=== PATIENT | female | born 1950 | race Caucasian/White ===

== ENCOUNTER 2017-12-07 07:40 | Day surgery (SDC) | payer MEDICARE, OTHER ==
[2017-12-05 09:03] VITALS: BMI 28.3
[~2017-12-07 07:40] MED LIST: LACTATED RINGERS 1,000 ML IV SCH
[2017-12-07 07:56] VITALS: RESP 16; TEMP 97.2
[2017-12-07] MEDS ORDERED: LIDOCAINE 1% 20 ML VIAL (10MG/ML) FOR IV START INTRADERMA ONE (08:02)
[2017-12-07] MEDS ORDERED: LIDOCAINE 1% INJ 10MG/ML (20 ML MDV) ONE (08:20)
[2017-12-07] MEDS ORDERED: PROPOFOL 10 MG/ML 20 ML VIAL IV ONE (08:20)
--- NOTE | 2017-12-07 08:34 | P.GSHP ---
History of Present Illness H&P Date: 12/07/17 Chief Complaint: GI bleed This is a 67-year-old female who presents today for colonoscopy. Patient has had history of GI bleed. Past Medical History Past Medical History: GERD/Reflux, Hyperlipidemia, Hypertension, Thyroid Disorder Additional Past Medical History / Comment(s): STATES NEW DIAGNOSIS OF HTN- WAITING FOR LOTREL PRESCRIPTION TO BE APPROVED BY HER INSURANCE., HYPOTHYROID, ALLERGIES, MIGRAINES., OCCASIONAL RECTAL BLOOD. History of Any Multi-Drug Resistant Organisms: None Reported Past Surgical History: Appendectomy, Section, Cholecystectomy, Orthopedic Surgery, Tonsillectomy, Tubal Ligation Additional Past Surgical History / Comment(s): RT ELBOW SX FOR TENNIS ELBOW Past Anesthesia/Blood Transfusion Reactions: Previous Problems w/ Anesthesia, Motion Sickness Additional Past Anesthesia/Blood Transfusion Reaction / Comment(s): STATES DIFFICULTY WAKING UP. Past Psychological History: Depression Smoking Status: Current some day smoker Past Alcohol Use History: Rare Additional Past Alcohol Use History / Comment(s): SMOKES OCCASIONALLY, SMOKING FOR APPROX 50 YEARS, QUIT 10 YRS AND STARTED AGAIN. Past Drug Use History: None Reported - Past Family History Sister(s) Family Medical History: Cancer Medications and Allergies Home Medications Medication Instructions Recorded Confirmed Type Atorvastatin [Lipitor] 20 mg PO HS 12/05/17 12/07/17 History Ibuprofen 200 mg PO ONCE PRN 12/05/17 12/07/17 History Levothyroxine Sodium [Levoxyl] 50 mcg PO DAILY 12/05/17 12/07/17 History Otc Allergy Med 1 tab PO DAILY 12/05/17 12/07/17 History amLODIPine BESYLATE/BENAZEPRIL 1 cap PO DAILY 12/05/17 12/07/17 History [Lotrel 5-10 mg Capsule] Allergies Allergy/AdvReac Type Severity Reaction Status Date / Time codeine Allergy Unknown Verified 12/07/17 07:51 Sulfa (Sulfonamide Allergy Unknown Verified 12/07/17 07:51 Antibiotics) venom-honey bee Allergy Unknown Verified 12/07/17 07:51 [bee venom (honey bee)] Surgical - Exam Vital Signs Temp Pulse Resp BP Pulse Ox 97.2 F L 81 16 129/60 95 12/07/17 07:55 12/07/17 07:55 12/07/17 07:55 12/07/17 07:55 12/07/17 07:55 - General well developed, no distress - Eyes PERRL - ENT normal pinna - Neck no masses - Respiratory normal expansion - Cardiovascular Rhythm: regular - Abdomen Abdomen: soft, non tender Assessment and Plan Assessment: GI bleed. We'll perform colonoscopy.
--- NOTE | 2017-12-07 08:53 | P.OP ---
Date of Procedure: 12/07/17 Preoperative Diagnosis: GI bleed Postoperative Diagnosis: Diverticulosis Minimal internal hemorrhoids Procedure(s) Performed: Colonoscopy Anesthesia: MAC Surgeon: Alan Colmenares Pathology: none sent Condition: stable Disposition: PACU Description of Procedure: The patient's placed on the endoscopy table in the lateral position. She received IV sedation. Digital rectal exam was performed which revealed a few internal hemorrhoids. The flexible colonoscope was then placed in the patient' s anus and passed throughout the entire colon. The ileocecal valve was visualized. There is a large amount of liquid stool ileocecal valve area which limited the view of the mucosa. There was no obvious tumor seen. The scope was then withdrawn. The remainder the ascending colon transverse colon and descending colon appeared normal. In the sigmoid colon there were some scattered diverticula. Scope was then brought back the rectum and this appeared normal. The scope was then withdrawn from patient.
[2017-12-07 09:15] VITALS: BP 103/59; PULSE 70
== END 2017-12-07 09:33 | disposition home or self-care (01) ==
LOC: ORWHC2ENDO 07:40
PROVIDERS: ATTEND Surgery
DX: K57.30 Diverticulosis of large intestine without perforation or abscess without bleeding (principal); K64.8 Other hemorrhoids; K21.9 Gastro-esophageal reflux disease without esophagitis; E78.5 Hyperlipidemia, unspecified; I10 Essential (primary) hypertension; E03.9 Hypothyroidism, unspecified; Z79.899 Other long term (current) drug therapy; Z88.2 Allergy status to sulfonamides; Z91.030 Bee allergy status; F17.200 Nicotine dependence, unspecified, uncomplicated
CPT/HCPCS: 45378; J2001; J2704

== ENCOUNTER → 2018-01-03 | Outpatient (CLI) | payer MEDICARE, OTHER ==
[2018-01-03 12:05] LABS: T4, Free (Free Thyroxine) 1.17 ng/dL (0.78-2.19)
== END ==
LOC: LABWHC1 10:52
PROVIDERS: ATTEND Otolaryngology
DX: E06.9 Thyroiditis, unspecified (principal)
CPT/HCPCS: 36415; 84439; 84443; 86376

== ENCOUNTER → 2018-01-10 | Outpatient (CLI) | payer MEDICARE, OTHER ==
--- NOTE | 2018-01-10 09:02 | CT ---
EXAMINATION TYPE: CT sinus wo con DATE OF EXAM: 01/10/2018 COMPARISON: NONE HISTORY: Facial pain and pressure for [address] DLP: 564.4 mGycm CONTRAST: 0 mL of Isovue 300 The paranasal sinuses are examined in the axial plane at 2 mm thick sections. Reconstructed images i n the coronal plane were obtained. Bilateral ethmoidectomies and uncinectomies been performed. No significant mucosal thickening is evid ent. No suspicious air-fluid levels are present. The maxillary sinuses are clear. The ethmoid air cells are clear. The sphenoid sinuses are clear. The frontal sinuses are clear. The septum is evaluated. There is septal deviation to the left. The ostiomeatal units are patent. IMPRESSIONS: 1. Postsurgical changes within the paranasal sinuses. No suspicious acute or chronic changes evident .
== END | disposition home or self-care (01) ==
LOC: RADCTMAIN 08:20
PROVIDERS: ATTEND Otolaryngology
DX: J32.9 Chronic sinusitis, unspecified (principal); Z98.890 Other specified postprocedural states
CPT/HCPCS: 70486

== ENCOUNTER → 2018-02-19 | Outpatient (CLI) | payer MEDICARE, OTHER ==
[2018-02-19 09:02] LABS: Blood Urea Nitrogen 15 mg/dL (7-17)
--- NOTE | 2018-02-19 16:20 | MR ---
EXAMINATION TYPE: MR brain and iac wo/w con DATE OF EXAM: 02/19/2018 COMPARISON: 01/10/2018 CT sinuses HISTORY: DIZZINESS TECHNIQUE: Multiplanar, multisequence images of the brain and brainstem is performed without and with IV contras t, utilizing 7 mL intravenous Gadavist . FINDINGS: Diffusion weighted images demonstrate no evidence of a recent infarct or other diffusion ab normality. There is no extra-axial fluid collection. There is moderate burden nonspecific white chichi er change demonstrated as scattered foci of T2/FLAIR hyperintensity within the periventricular and john bcortical white matter. The largest is seen within the left frontal subcortical white matter on FLAIR fat sat axial image 21 measuring 7 mm. The ventricular system and cisternal spaces are normal in siz e and appearance. The brain volume is age appropriate. Midline structures demonstrate normal morphology. The craniocervical junction appears within normal limits. There is very mild asymmetric enhancement on the left along the course of the 7th and 8th cr anial nerves confined to their canalicular segments only. Post contrast images demonstrate no other a bnormal enhancement. The dural venous sinuses appear patent. No cerebellar pontine angle mass is iden tified. The visualized sinuses are clear other than scant mucosal thickening within the ethmoid sinus es. The globes are intact. IMPRESSION: 1. Mild linear asymmetric enhancement in the canalicular portions of the 7th and 8th cranial nerves t hat may relate to nonspecific neuritis, demyelination, infectious etiology or granulomatous etiology. No focal lesion to suggest schwannoma is seen. 2. Moderate burden nonspecific white matter change predominating within the subcortical white matter. Therefore given its distribution is most likely relates to sequela of microangiopathy rather than de myelinating disease. Vasculitis could also be considered. 2. No evidence of acute infarct, intracranial enhancing mass, or midline shift. 3. Very mild ethmoid mucosal thickening.
== END | disposition home or self-care (01) ==
LOC: RADMRIMAIN 08:16
PROVIDERS: ATTEND Otolaryngology
DX: R90.82 White matter disease, unspecified (principal); R42 Dizziness and giddiness
CPT/HCPCS: 82565; 84520; 70553; 36415; A9581

== ENCOUNTER → 2018-03-06 | Outpatient (CLI) | payer MEDICARE, OTHER ==
--- NOTE | 2018-03-06 20:17 | XR ---
EXAMINATION TYPE: XR elbow complete LT DATE OF EXAM: 03/06/2018 COMPARISON: NONE HISTORY: Elbow pain TECHNIQUE: 3 views FINDINGS: There is hairline intra-articular chip fracture of the lateral aspect of the radial head. T his measures 11 mm. IMPRESSION: Radial head chip fracture. No dislocation. No joint effusion seen.
== END | disposition home or self-care (01) ==
LOC: RADXRMAIN 18:06
PROVIDERS: ATTEND Family Medicine
DX: S52.122A Displaced fracture of head of left radius, initial encounter for closed fracture (principal)

== ENCOUNTER → 2018-03-30 | Outpatient (CLI) | payer MEDICARE, OTHER ==
--- NOTE | 2018-03-30 13:31 | US ---
EXAMINATION TYPE: US carotid duplex BILAT DATE OF EXAM: 03/30/2018 COMPARISON: NONE CLINICAL HISTORY: R42 DIZZINESS. EXAM MEASUREMENTS: RIGHT: Peak Systolic Velocity (PSV) cm/sec ----- Right CCA: 78.4 ----- Right ICA: 123 ----- Right ECA: 136 ICA/CCA ratio: 1.5 RIGHT: End Diastole cm/sec ----- Right CCA: 17.8 ----- Right ICA: 37.3 ----- Right ECA: 12.0 LEFT: Peak Systolic Velocity (PSV) cm/sec ----- Left CCA: 93.4 ----- Left ICA: 201 ----- Left ECA: 143 ICA/CCA ratio: 2.1 LEFT: End Diastole cm/sec ----- Left CCA: 21.5 ----- Left ICA: 46.6 ----- Left ECA: 15.7 VERTEBRALS (direction of flow): Right Vertebral: Antegrade Left Vertebral: Antegrade Rhythm: Normal Moderate amount of plaque visualized bilateral bulbs/proximal ICAs. Elevated velocities visualized in right ECA, left proximal and mid ICA, and left ECA. IMPRESSION: 1. 50-69% stenosis within the left internal carotid artery. CTA neck could more accurately assess the degree of stenosis. 2. Velocity within the right internal carotid artery approaching abnormal values favored to represent approximately 50% stenosis. 3. Incidentally noted elevated velocities within the external carotid arteries likely due to atheroma tous plaquing at the carotid bulbs.
== END | disposition home or self-care (01) ==
LOC: RADUSWWP 11:02
PROVIDERS: ATTEND Psychiatry & Neurology Neurology
DX: I65.22 Occlusion and stenosis of left carotid artery (principal); R93.8 Abnormal findings on diagnostic imaging of other specified body structures
CPT/HCPCS: 93880

== ENCOUNTER → 2018-04-05 | Outpatient (CLI) | payer MEDICARE, OTHER ==
--- NOTE | 2018-04-12 13:37 | HM ---
HOLTER MONITOR REPORT Patient was monitored for 24 hours. Baseline rhythm is a sinus mechanism with normal conduction. The average rate is 79 beats per minute, minimum of 53, maximum 133 beats per minute. Ventricular ectopic activity was not present. Supraventricular ectopic activity was present in the form of rare single PACs. No diary was available. CONCLUSION: 1. Sinus mechanism baseline rhythm. 2. No ventricular ectopic activity. 3. Rare supraventricular ectopic activity. 4. No diary was available. MMODL / IJN: [id number] /
== END | disposition home or self-care (01) ==
LOC: RADECHMAIN 12:03
PROVIDERS: ATTEND Psychiatry & Neurology Neurology
DX: R93.1 Abnormal findings on diagnostic imaging of heart and coronary circulation (principal)
CPT/HCPCS: 93225; 93226

== ENCOUNTER → 2018-04-12 | Outpatient (CLI) | payer MEDICARE, OTHER ==
[2018-04-12 10:35] LABS: Blood Urea Nitrogen 12 mg/dL (7-17)
--- NOTE | 2018-04-12 13:11 | CT ---
EXAMINATION TYPE: CT angio neck DATE OF EXAM: 04/12/2018 HISTORY: Occlusion and stenosis of bilateral carotid COMPARISON: Carotid Doppler duplex 03/30/2018 CT DLP: 271 mGycm. Automated Exposure Control for Dose Reduction was Utilized. TECHNIQUE: CTA scan of the neck is performed without and with IV Contrast, patient injected with 100 ml mL of Isovue 370, axial images are obtained, coronal and sagittal reformatted images are reviewed . Three-D reconstructed images are created on an independent workstation and reviewed. FINDINGS: Carotid/Vascular Structures: High-grade stenosis of the proximal internal carotid artery on the left is noted, findings thought to represent at least 70% diameter reduction and possibly greater. Right i nternal carotid artery does not show significant stenosis. External carotid arteries are patent bilat erally. There is plaque present at the common carotid arteries bilaterally, the common carotid, left and right subclavian, innominate arteries and transverse aorta are patent. There is atheromatous max ge at the origin of the super aortic branch vessels. Difficult to exclude origin stenosis of super ao rtic branch vessels as well as the origin of the right subclavian artery, local contrast at this leve l from the venous injection obscures detail. Other: Degenerative disc changes are present in the visualized spine. Multilevel foraminal encroachme nt present. Lung apices show emphysematous changes. IMPRESSION: Hemodynamic significant stenosis of the proximal internal carotid artery on the left.
== END | disposition home or self-care (01) ==
LOC: RADCTMAIN 09:43
PROVIDERS: ATTEND Psychiatry & Neurology Neurology
DX: I65.22 Occlusion and stenosis of left carotid artery (principal)
CPT/HCPCS: 82565; 84520; 70498; 36415; Q9967

== ENCOUNTER 2018-06-02 20:17 | Emergency (ER) | payer MEDICARE, OTHER ==
[2018-06-02 20:23] VITALS: BP 137/60; PULSE 93; RESP 18; TEMP 98.7
[2018-06-02] MEDS ORDERED: ORPHENADRINE 30 MG/ML 2 ML VIAL IM STA (20:58)
[2018-06-02] MEDS ORDERED: KETOROLAC 60 MG/2 ML VIAL IM STA (20:58)
--- NOTE | 2018-06-02 21:00 | ED ---
Back Pain HPI - General Source: patient, family, RN notes reviewed, old records reviewed Limitations: no limitations <Abigail Hernandez - Last Filed: 06/04/18 00:10> <Talia Mei - Last Filed: 06/04/18 03:05> - General Chief Complaint: Extremity Injury, Lower Stated Complaint: Leg/back pain Time Seen by Provider: 06/02/18 20:32 - History of Present Illness Initial Comments: Patient is a 68-year-old female presents emergency department due to bleeding of 4 days of left-sided back pain radiating towards the back of her leg and on the side of her leg into her knee. Patient states that she is not taking anything for pain relief. Patient reports that she has been moving as of recently and she's in lifting heavy boxes. Patient states that she's had no bowel or bladder incontinence. Denies any saddle anesthesias. Patient states that she has painless range of motion of her lower back and hip. (Abigail Hernandez) - Related Data Home Medications Medication Instructions Recorded Confirmed Atorvastatin [Lipitor] 20 mg PO HS 12/05/17 12/07/17 Ibuprofen 200 mg PO ONCE PRN 12/05/17 12/07/17 Levothyroxine Sodium [Levoxyl] 50 mcg PO DAILY 12/05/17 12/07/17 Otc Allergy Med 1 tab PO DAILY 12/05/17 12/07/17 amLODIPine BESYLATE/BENAZEPRIL 1 cap PO DAILY 12/05/17 12/07/17 [Lotrel 5-10 mg Capsule] Previous Rx's Medication Instructions Recorded Cyclobenzaprine [Flexeril] 10 mg PO TID #20 tab 06/02/18 HYDROcodone/APAP 5-325MG [[place] 1 tab PO Q6HR PRN 3 Days #12 tab 06/02/18 5-325] Ibuprofen 800 mg PO TID #20 tablet 06/02/18 Allergies Allergy/AdvReac Type Severity Reaction Status Date / Time codeine Allergy Unknown Verified 06/02/18 20:23 Sulfa (Sulfonamide Allergy Unknown Verified 06/02/18 20:23 Antibiotics) venom-honey bee Allergy Unknown Verified 06/02/18 20:23 [bee venom (honey bee)] Review of Systems ROS Other: All systems not noted in ROS Statement are negative. <Abigail Hernandez - Last Filed: 06/04/18 00:10> ROS Other: All systems not noted in ROS Statement are negative. <Talia Mei Colin - Last Filed: 06/04/18 03:05> ROS Statement: Those systems with pertinent positive or pertinent negative responses have been documented in the HPI. Past Medical History Past Medical History: GERD/Reflux, Hyperlipidemia, Hypertension, Thyroid Disorder Additional Past Medical History / Comment(s): STATES NEW DIAGNOSIS OF HTN- WAITING FOR LOTREL PRESCRIPTION TO BE APPROVED BY HER INSURANCE., HYPOTHYROID, ALLERGIES, MIGRAINES., OCCASIONAL RECTAL BLOOD. History of Any Multi-Drug Resistant Organisms: None Reported Past Surgical History: Appendectomy, Section, Cholecystectomy, Orthopedic Surgery, Tonsillectomy, Tubal Ligation Additional Past Surgical History / Comment(s): RT ELBOW SX FOR TENNIS ELBOW Past Anesthesia/Blood Transfusion Reactions: Previous Problems w/ Anesthesia, Motion Sickness Additional Past Anesthesia/Blood Transfusion Reaction / Comment(s): STATES DIFFICULTY WAKING UP. Past Psychological History: Depression Smoking Status: Current some day smoker Past Alcohol Use History: Rare Past Drug Use History: None Reported - Past Family History Sister(s) Family Medical History: Cancer <MaryAbigail - Last Filed: 06/04/18 00:10> General Exam Limitations: no limitations General appearance: alert, in no apparent distress Head exam: Present: atraumatic, normocephalic, normal inspection Eye exam: Present: normal appearance, PERRL, EOMI. Absent: scleral icterus, conjunctival injection, periorbital swelling ENT exam: Present: normal exam, mucous membranes moist Neck exam: Present: normal inspection. Absent: tenderness, meningismus, lymphadenopathy Respiratory exam: Present: normal lung sounds bilaterally. Absent: respiratory distress, wheezes, rales, rhonchi, stridor Cardiovascular Exam: Present: regular rate, normal rhythm, normal heart sounds. Absent: systolic murmur, diastolic murmur, rubs, gallop, clicks GI/Abdominal exam: Present: soft, normal bowel sounds. Absent: distended, tenderness, guarding, rebound, rigid Extremities exam: Present: normal inspection, full ROM, normal capillary refill. Absent: tenderness, pedal edema, joint swelling, calf tenderness Right Hip exam: Present: tenderness (over glut and IT band and lateral thight and hip. ) Upper Leg exam: Present: normal inspection, full ROM Knee exam: Present: normal inspection, full ROM Neurovascular tendon exam: Present: no vascular compromise Gait: observed and normal Back exam: Present: paraspinal tenderness, vertebral tenderness, other (over ASIS and piriformis muscle on R ). Absent: normal inspection Neurological exam: Present: alert, oriented X3, CN II-XII intact <Abigail Hernandez - Last Filed: 06/04/18 00:10> <Talia Mei - Last Filed: 06/04/18 03:05> - General Exam Comments Initial Comments: Well-appearing 68-year-old female. No significant distress. (Abigail Hernandez) Vital Signs 06/02/18 20:19 Temperature 98.7 F Pulse Rate 93 Respiratory 18 Rate Blood Pressure 137/60 O2 Sat by Pulse 97 Oximetry Medical Decision Making - Radiology Data Radiology results: report reviewed <Abigail Hernandez - Last Filed: 06/04/18 00:10> <Talia Mei - Last Filed: 06/04/18 03:05> - Medical Decision Making Patient is a 68-year-old female presents emergency department due to bleeding of 4 days of left-sided back pain radiating towards the back of her leg and on the side of her leg into her knee. Patient states that she is not taking anything for pain relief. Patient reports that she has been moving as of recently and she's in lifting heavy boxes. She has significant tenderness over lumbar spine and gluteus pina. Patient otherwise has normal sensation over leg and pulses. Patient pain distribution is consistent with sciatica, and pririformis syndrome. Xrays showDD of lumbar, no nee or hip fractures. Patient will be DC with pain meds, antiinflammation. Discussed ortho and PCP follow up. (Abigail Hernandez) I was available for consultation in the emergency department. The history and physical exam were done by the Midlevel Provider. Medical decision making was done by the Midlevel Provider. The Midlevel Provider did not contact me for this patient's care. I was not directly involved in this patient's care. (Talia Mei) - Radiology Data Vertebral body height remain within normal limits. Moderate distress narrowing and vacuum disc phenomenon with L3-L4 or prominent from prior. Persistent mild disc racing at L4-L5. There is also discussed the L5-S1. Vascular constipation overlying the abdominal aorta is noted. Mild to moderate Trichomonas department joint space loss is present in the knee. Overlying soft tissues unremarkable. No acute fracture dislocation. There is no acute fracture dislocation in the pelvis or left hip. (Abigail Hernandez) Disposition Is patient prescribed a controlled substance at d/c from ED?: No Time of Disposition: 21:57 <Abigail Hernandez - Last Filed: 06/04/18 00:10> <Talia Mei - Last Filed: 06/04/18 03:05> Clinical Impression: Injury of sciatic nerve at hip and thigh level, left leg, initial encounter, Lumbar radiculopathy, acute Disposition: HOME SELF-CARE Condition: Good Instructions: Lumbar Radiculopathy (ED) Additional Instructions: Patient advised follow-up with primary care physician and to take the medications as prescribed. Return to the emergency department if any alarming signs or symptoms occur. Prescriptions: Cyclobenzaprine [Flexeril] 10 mg PO TID #20 tab HYDROcodone/APAP 5-325MG [[place] 5-325] 1 tab PO Q6HR PRN 3 Days #12 tab PRN Reason: Pain Ibuprofen 800 mg PO TID #20 tablet Referrals: Juan Zimmer DO [Primary Care Provider] - 1-2 days Otilia Conde DO [Doctor of Osteopathic Medicine] - 1-2 days
--- NOTE | 2018-06-02 21:50 | XR ---
EXAMINATION TYPE: XR knee complete LT DATE OF EXAM: 06/02/2018 CLINICAL HISTORY: Left knee pain for 4 days, fall injury a few months ago. TECHNIQUE: Three views of the left knee are obtained. COMPARISON: None. FINDINGS: There is no acute fracture/dislocation evident in left knee. Mild to moderate tricompartme nt joint space loss is present. The overlying soft tissue appears unremarkable. IMPRESSION: There is no acute fracture or dislocation in the left knee.
--- NOTE | 2018-06-02 21:51 | XR ---
EXAMINATION TYPE: XR lumbar spine 2 or 3V DATE OF EXAM: 06/02/2018 CLINICAL HISTORY: Low back pain. TECHNIQUE: Frontal and lateral images of the lumbar spine are obtained. COMPARISON: CT abdomen and pelvis November 26, 2014. FINDINGS: There are 5 lumbar type vertebral bodies redemonstrated. The lumbar spine redemonstrates satisfactory alignment without evidence of acute fracture or dislocation. Vertebral body heights rodri in within normal limits. There is moderate to advanced disc space narrowing with vacuum disc phenom enon and mild to moderate anterior spurring L3-L4 level more prominent from prior. There is persisten t mild to moderate disc space narrowing L4-L5 level. There is persistent moderate disc space narrowin g L5-S1 level. Vascular calcification overlying abdominal aorta is seen. Cholecystectomy clips are no sandi. IMPRESSION: As above.
--- NOTE | 2018-06-02 21:52 | XR ---
EXAMINATION TYPE: XR Hip LT and AP Pelvis DATE OF EXAM: 06/02/2018 COMPARISON: NONE HISTORY: Left hip pain. TECHNIQUE: A single AP view of the pelvis is obtained. Two views of the left hip are obtained. FINDINGS: There is no acute fracture/dislocation evident in the pelvis. The sacroiliac joints appea r symmetric and unremarkable. Mild to moderate bilateral acetabular spurring is present. Scattered pe lvic phleboliths are seen bilaterally. Two views of left hip show no acute fracture or dislocation. No focal lytic or sclerotic lesion seen in the proximal left femur. The overlying soft tissue is unremarkable. IMPRESSION: There is no acute fracture or dislocation in the pelvis or left hip.
[2018-06-02] MEDS ORDERED: CYCLOBENZAPRINE 10MG STARTER 3 TAB BTL PO STA (22:09)
== END 2018-06-02 22:20 | disposition home or self-care (01) ==
LOC: EC 20:17
DX: S74.02XA Injury of sciatic nerve at hip and thigh level, left leg, initial encounter (principal); M54.16 Radiculopathy, lumbar region; E78.5 Hyperlipidemia, unspecified; I10 Essential (primary) hypertension; E03.9 Hypothyroidism, unspecified; F17.200 Nicotine dependence, unspecified, uncomplicated; Z79.899 Other long term (current) drug therapy; Z88.5 Allergy status to narcotic agent; Z88.2 Allergy status to sulfonamides; Z91.030 Bee allergy status; X50.0XXA Overexertion from strenuous movement or load, initial encounter
CPT/HCPCS: 72100; 73502; 73562; 99284; 96372 ×2; J2360; J1885

== ENCOUNTER → 2020-09-02 | Outpatient (CLI) | payer MEDICARE, OTHER ==
--- NOTE | 2020-09-02 10:20 | CT ---
EXAMINATION TYPE: CT angio neck DATE OF EXAM: 09/02/2020 HISTORY: Occlusion and stenosis COMPARISON: CTA Neck April 12, 2018 CT DLP: 336 mGycm. Automated Exposure Control for Dose Reduction was Utilized. TECHNIQUE: CTA scan of the head and neck are performed without and with IV Contrast, patient injecte d with 65 ml mL of Isovue 370, axial images are obtained, coronal and sagittal reformatted images are reviewed. Case reviewed on independent workstation utilized during official interpretation of this study. FINDINGS: Carotid/Vascular Structures: Moderate mixed plaque in the arch is redemonstrated. There is persistent normal 3 vessel origin from the aortic arch. The right common carotid artery shows normal origin fro m the right brachiocephalic artery. No significant plaque or stenosis. There is moderate to severe mi xed plaque in the right carotid bulb extending into proximal internal/external carotid arteries, sign ificant stenosis in the right external carotid artery greater than 50% is incidentally noted. The rig ht internal carotid artery shows no significant stenosis. Some tortuous course is redemonstrated. Mil d calcified plaque in the petrous and supraclinoid segments. Patent anterior communicating artery inc identally noted. Persistent significant noncalcified in the left common carotid artery at its origin but lumen diamete r narrowed only to 4.0 mm on raw data slice 219 with reconstitution of to 7.5 mm distal to this consi stent with less than 50% stenosis. Remainder left common carotid artery shows mild to moderate noncal cified plaque anteriorly in the distal segment without significant stenosis. There is more severe mix ed plaque at the left carotid bulb extending into proximal internal/external carotid arteries without significant stenosis in the left external carotid artery. There is significant stenosis at the origi n of the left internal carotid artery however. Lumen diameter is narrowed to 1.5 mm AP diameter on sl ice 112 there is reconstitution distal to this up to 5.3 mm. Remainder left internal carotid artery r edemonstrates tortuous course with mild calcified plaque in the supraclinoid segment, no significant stenosis. Interval progression in the focal stenosis noted from 2018 study. Codominant vertebrobasilar system patent to the basilar junction noted. There is significant stenosis at the left subclavian artery from the aortic arch with prominent nonca lcified plaque, small degree of residual flow along left aspect becomes occluded, there is some minim al flow along the right anterior aspect narrowed to roughly 1.8 mm on slice 207. There is reconstitut ion to 7.1 mm superior to this. This also shows interval progression from 2018. Moderate mixed plaque extends distal to this up to horizontal portion. Remainder of the left subclavian into the proximal axillary artery shows no significant plaque or stenosis Other: Moderate emphysematous change MA visualized upper lungs is redemonstrated. Multilevel spondylolisthesis and mild/moderate disc space narrowing and moderate spurring in the cerv ical spine redemonstrated. IMPRESSION: 1. Interval progression of severe mixed plaque left carotid bulb causing worsening stenosis at origin of the left internal carotid artery. I calculate lumen diameter stenosis approaching 75%. I do not g et 70% as reported on prior study, I think was closer to 50-60% on prior. 2. Severe noncalcified plaque proximal left subclavian artery causes stenosis approaching at least 80 % with irregular plaque noted with interval progression from 2018 study.
== END | disposition home or self-care (01) ==
LOC: RADCTMAIN 07:58
PROVIDERS: ATTEND Surgery
DX: I65.22 Occlusion and stenosis of left carotid artery (principal); I65.29 Occlusion and stenosis of unspecified carotid artery
CPT/HCPCS: 82565; 84520; 70498; 36415; Q9967

== ENCOUNTER 2020-10-27 07:08 | Inpatient (IN) | payer MEDICARE ==
[2020-10-21 11:26] VITALS: BMI 28.3
[2020-10-22 15:53] LABS: Basophils # (A) 0.1 k/uL (0-0.2); Basophils % (A) 1 %; Eosinophils # (A) 0.1 k/uL (0-0.7); Eosinophils % (A) 1 %; HCT 50.3 % (34.0-46.0); HGB 15.7 gm/dL (11.4-16.0); Lymphocytes # (A) 2.6 k/uL (1.0-4.8); Lymphocytes % (A) 27 %; MCH 28.8 pg (25.0-35.0); MCHC 31.3 g/dL (31.0-37.0); MCV 91.8 fL (80.0-100.0); Mean Platelet Volume 9.1; Monocytes # (A) 0.6 k/uL (0-1.0); Monocytes % (A) 6 %; Neutrophils # (A) 6.2 k/uL (1.3-7.7); Neutrophils % (A) 64 %; Platelet Count 227 k/uL (150-450); RBC 5.47 m/uL (3.80-5.40); RDW 13.7 % (11.5-15.5); WBC 9.6 k/uL (3.8-10.6)
[2020-10-22 16:09] LABS: Potassium 4.1 mmol/L (3.5-5.1)
[~2020-10-27 07:08] MED LIST changes: -LACTATED RINGERS 1,000 ML IV SCH; +LIDOCAINE 1% (10MG/ML) FOR IV START INTRADERMA PRN; +MIDAZOLAM 2 MG/2 ML VIAL IV PRN; +fentaNYL (PF) 50 MCG/ML 2 ML AMP IVP PRN
[2020-10-27] MEDS ORDERED: NITROGLYCERIN-D5W PMX 50 MG in DEXTROSE/WATER 1 250ML.BAG IV SCH (07:45)
[2020-10-27] MEDS: LACTATED RINGERS 1,000 ML IV SCH ×3 (08:10→14:21)
[2020-10-27] MEDS: ONDANSETRON 4 MG/2 ML VIAL IVP ONE ×2 (08:15→08:20)
[2020-10-27] MEDS: DEXAMETHASONE SOD PHOSPHATE 4 MG/ML 1 ML VIAL IV ONE ×2 (08:15→08:20)
[2020-10-27] MEDS ORDERED: PROTAMINE SULFATE 10 MG/ML 5 ML VIAL IV ONE (09:22)
[2020-10-27] MEDS ORDERED: NEOSTIGMINE 1 MG/ML 10 ML VIAL ONE (09:22)
[2020-10-27] MEDS ORDERED: ROCURONIUM 10 MG/ML (5 ML VIAL) IV ONE (09:22)
[2020-10-27] MEDS ORDERED: MIDAZOLAM 2 MG/2 ML VIAL ONE (09:22)
[2020-10-27] MEDS ORDERED: PROPOFOL 10 MG/ML 20 ML VIAL IV ONE (09:22)
[2020-10-27] MEDS ORDERED: SUCCINYLCHOLINE CHLORIDE 100 MG/5 ML SYR IV ONE (09:22)
[2020-10-27] MEDS ORDERED: GLYCOPYRROLATE 0.2 MG/ML 2 ML VIAL ONE (09:22)
[2020-10-27] MEDS ORDERED: ePHEDrine SULFATE/0.9% NACL/PF 50 MG/5 ML SYRINGE IV ONE (09:22)
[2020-10-27] MEDS ORDERED: HEPARIN SODIUM,PORCINE 5,000 UNIT/ML 1 ML VIAL ONE (09:22)
[2020-10-27] MEDS ORDERED: LIDOCAINE 1% INJ 10MG/ML (20 ML MDV) ONE (09:22)
[2020-10-27] MEDS ORDERED: fentaNYL (PF) 50 MCG/ML 2 ML AMP ONE (09:22)
[2020-10-27] MEDS ORDERED: PHENYLEPHRINE-0.9% NACL SYG 1,000 MCG/10 ML SYRINGE ONE (09:22)
[2020-10-27] MEDS ORDERED: HYDROmorphone (PF) 1 MG/ML ONE (09:22)
[2020-10-27] MEDS ORDERED: HEPARIN SODIUM (1,000 UNIT/ML) 2,000 UNIT in SODIUM CHLORIDE 0.9% 1,000 ML IRRIGATION ONE (10:12)
[2020-10-27] MEDS ORDERED: ceFAZolin 2,000 MG in SODIUM CHLORIDE 0.9% 500 ML IRRIGATION ONE (10:12)
[2020-10-27] MEDS ORDERED: LIDOCAINE 1% INJ 10MG/ML (20 ML MDV) SQ ONE (10:16)
[2020-10-27] MEDS ORDERED: LACTATED RINGERS 1,000 ML IV ONE (10:17)
--- NOTE | 2020-10-27 10:38 | P.ANPRN ---
Procedure Note - Anesthesia - Invasive Line Right Arterial Line Time Out Performed: Yes ([id number]) Date of Procedure: 10/27/20 Time of Procedure: 08:41 Location of Patient: PreOp Preparation: Sterile Prep, Sterile Dressing Arterial Line Location: Radial Ultrasound Used: Yes Purpose - Visualization and Identification of Vasculature: Yes Needle Guage: 20g angio Image Stored and Saved: Yes Narrative: Central line placement per sterile protocol utilized. used kit. Sterile protocol +local +needle with Jwire +uneventful placement Right Radial Arterial Line
[2020-10-27] MEDS ORDERED: TRIMETHOBENZAMIDE 100 MG/ML 2 ML VIAL IM PRN (11:26)
[2020-10-27] MEDS ORDERED: MORPHINE SULFATE 2 MG/ML SYRINGE IVP PRN (11:26)
[2020-10-27] MEDS ORDERED: MAG HYDROX/AL HYDROX/SIMETH 30 ML CUP PO PRN (11:26)
[2020-10-27] MEDS ORDERED: ACETAMINOPHEN TAB 325 MG TAB PO PRN (11:26)
--- NOTE | 2020-10-27 11:43 | P.OP ---
Description of Procedure: Date of Procedure: 10/27/2020 Preoperative Diagnosis: Symptomatic left Internal carotid artery stenosis Postoperative Diagnosis: Same Procedure(s) Performed: Left carotid endarterectomy with patch angioplasty Anesthesia: ELIZABETH Surgeon: Isreal Graves Estimated Blood Loss (ml): 20cc IV Fluids & urine output: See anesthesia record Pathology: Left carotid plaque Condition: stable Disposition: PACU Indications for Procedure: 70-year-old female with severe left-sided carotid stenosis seen on ultrasound and CT angiogram demonstrating greater than 80-90% stenosis presented originally to the office with complaints of amaurosis fugax involving the left eye. She states this has been ongoing for the last several weeks to months intermittently. She also has complaints of left hand weakness and was diagnosed with greater than 80% stenosis of the left subclavian artery. Due to her symptoms with the carotid it was discussed and determined that she would require endarterectomy of her carotid artery prior to any intervention of the subclavian. She presents today for carotid endarterectomy with patch angioplasty. Description of Procedure: After written informed consent was obtained the patient all risks benefits and competitions were described the patient is brought to the operative suite and laid in a supine position. The area of the neck was prepped and draped in usual sterile fashion after appropriate anesthetic was performed per the anesthesiologist. A timeout was performed in normal fashion antibiotics were administered prior to incision. An oblique incision was then created just anterior to the sternocleidomastoid musculature with a 10 blade scalpel and dissection was carried down to the carotid sheath. The carotid sheath was then entered after facial vein was located and suture ligated in normal fashion. The common carotid, internal carotid, external carotid and superior thyroid arteries were located and dissected free in a meticulous fashion circumferentially and controlled with vessel loops. Attention was then placed to locating the vagus nerve as well as hypoglossal nerve which were both spared. Once controlled patient was administered heparin and followed with ACTs for appropriate heparinization. Once ACT was above 200 the proximal and distal aspects of the dissection were then controlled with vascular clamps. Arteriotomy was then created with 11 blade scalpel and extended with Maxwell Cortez scissors. Utilizing pressure tubing stump pressures were obtained and were 63. No shunt was required and endarterectomy was then performed with a Clymer and elevator. The plaque was then feathered at the distal aspect and the internal carotid artery and removed. The area was copiously irrigated with heparinized saline and all free debris was removed. A 7-0 Prolene suture was then placed to tack the distal aspect of the dissection at the internal carotid artery. A 0.8 x 8 cm bovine pericardial patch was then chosen and patch angioplasty was performed with 6-0 Prolene suture in a running fashion. Prior to last sutures being placed the inflow was released flushing any free debris out of the patch. This was reclamped and the internal carotid artery was released revealing good brisk flow and was once again reclamped. The external carotid and superior thyroid artery were then released followed by the common carotid artery to allow any free debris to be flushed into the external system. Final sutures were placed and secured. Internal carotid artery control was then released. Good pulsatile flow was noted through the patch and a Doppler was utilized demonstrating good brisk flow into the internal, external carotid arteries without any signs of obstruction. Hemostasis was then assured with Surgicel. A 10-German REI drain was then placed in normal fashion and secured with 3-0 nylon suture. The incision was then closed in a multilayer fashion after hemostasis was assured. The skin was then cleansed and dressings were placed. Patient tolerated the procedure well and was following commands and moving all extremities. Patient was then sent to PACU for recovery.
[2020-10-27] MEDS ORDERED: ONDANSETRON 4 MG/2 ML VIAL IVP ONE (13:15)
[2020-10-27 14:08] LABS: Glucose,Whole Blood 158 mg/dL (75-99)
[2020-10-27] MEDS: PHENYLEPHRINE 40 MG in SODIUM CHLORIDE 0.9% 250 ML IV SCH (14:12)
[2020-10-27 14:29] LABS: Calcium 9.2 mg/dL (8.4-10.2)
[2020-10-27] MEDS: HEPARIN SODIUM,PORCINE 5,000 UNIT/ML 1 ML VIAL SQ SCH ×2 (17:13→23:47)
[2020-10-27] MEDS ORDERED: SODIUM CHLORIDE 0.9% 500 ML 500 ML IV ONE (19:09)
[2020-10-27] MEDS: HYDROcodone/APAP 5-325MG 1 EACH TAB PO PRN (20:15)
[2020-10-27] MEDS: BENZOCAINE/MENTHOL LOZENG 1 EACH LOZENGE MUCOUS MEM PRN (20:17)
[2020-10-28] MEDS: LACTATED RINGERS 1,000 ML IV SCH (01:00)
[2020-10-28 04:00] LABS: HCT 37.9 % (34.0-46.0); MCH 29.9 pg (25.0-35.0); MCHC 32.1 g/dL (31.0-37.0); MCV 93.2 fL (80.0-100.0); Mean Platelet Volume 9.2; Platelet Count 158 k/uL (150-450); RBC 4.07 m/uL (3.80-5.40); RDW 13.8 % (11.5-15.5); WBC 14.6 k/uL (3.8-10.6)
[2020-10-28 04:05] LABS: HGB 12.2 gm/dL (11.4-16.0)
[2020-10-28 04:19] LABS: Calcium 9.1 mg/dL (8.4-10.2); Potassium 4.1 mmol/L (3.5-5.1)
[2020-10-28] MEDS: PHENYLEPHRINE 40 MG in SODIUM CHLORIDE 0.9% 250 ML IV SCH (05:22)
[2020-10-28] MEDS: HYDROcodone/APAP 5-325MG 1 EACH TAB PO PRN (05:23)
[2020-10-28 05:29] VITALS: TEMP 97.6
[2020-10-28] MEDS: BENZOCAINE/MENTHOL LOZENG 1 EACH LOZENGE MUCOUS MEM PRN (08:00)
[2020-10-28] MEDS: HEPARIN SODIUM,PORCINE 5,000 UNIT/ML 1 ML VIAL SQ SCH (08:00)
[2020-10-28] MEDS ORDERED: ASPIRIN 81 MG PO SCH (09:00)
--- NOTE | 2020-10-28 11:21 | P.DS ---
Providers Date of admission: 10/27/20 07:08 Attending physician: Isreal Graves DO Primary care physician: Juan [facility] Course: 70-year-old female patient who was scheduled for elective left carotid endarterectomy yesterday with Dr. Lerma. She has status postop day #1 for left carotid endarterectomy with patch angioplasty. The patient has a past medical history that includes hypothyroidism, hyperlipidemia, hypertension, current every day smoker who on a recent CT a of the neck showed 75% stenosis in the left internal carotid artery, and greater than 80% stenosis of the left subclavian artery. Assessment: The patient was seen and examined in the ICU. She is without any acute changes through the night. She's been hemodynamically stable. She denies any focal deficits. Lerma catheter has been discontinued. Her seen reported approximately 45 mL's of serosanguineous output from REI drain. Exam: General appearance: The patient is alert, oriented, in no acute distress. HET: Head is normocephalic and atraumatic. Pupils are equal and reactive. Neck: Supple without lymphadenopathy. Trachea midline. Left side of neck with dressing clean dry and intact with REI drain with serosanguineous drainage approximately 5 mL's. Heart: S1 S2. Regular rate and rhythm. Lungs: Clear to auscultation. Abdomen: Soft, nontender, nondistended. Extremities: Normal skin color and turgor. Bilateral palpable radial pulses. Neurological: No focal deficits. Strength and sensation are grossly intact. Assessment: 1. Postop day #1 left carotid endarterectomy with patch angioplasty 2. Left internal carotid artery stenosis 3. Left subclavian artery stenosis, greater than 80% noted on CTA 4. Tobacco abuse, every day smoker 5. Hyperlipidemia 6. Hypertension Plan: Continue aspirin, Plavix, statin Smoking cessation REI drain discontinued Patient may be discharged home from a vascular surgical standpoint Procedures: Left carotid endarterectomy with patch angioplasty Patient Condition at Discharge: Good Plan - Discharge Summary Discharge Rx Participant: Yes New Discharge Prescriptions: New Aspirin 162 mg PO DAILY chew Continue Atorvastatin [Lipitor] 20 mg PO HS Levothyroxine Sodium [Levoxyl] 50 mcg PO DAILY amLODIPine BESYLATE 5 mg PO HS Clopidogrel [Plavix] 75 mg PO DAILY Discharge Medication List Atorvastatin [Lipitor] 20 mg PO HS 12/05/17 [History] Levothyroxine Sodium [Levoxyl] 50 mcg PO DAILY 12/05/17 [History] Clopidogrel [Plavix] 75 mg PO DAILY 10/21/20 [History] amLODIPine BESYLATE 5 mg PO HS 10/21/20 [History] Aspirin 162 mg PO DAILY chew 10/28/20 [Rx] Follow up Appointment(s)/Referral(s): Isreal Graves DO [STAFF PHYSICIAN] - 1 Week Patient Instructions/Handouts: How to Stop Smoking (DC), Heart Healthy Diet (DC), Carotid Endarterectomy (DC) Activity/Diet/Wound Care/Special Instructions: No Strenuous activity or heavy lifting till cleared by Dr. Graves. You may shower in 24 hours. Watch incision site for abnormal drainage, redness, and call with any reports a fever greater than 100.4. Discharge Disposition: HOME SELF-CARE
[2020-10-28 13:18] VITALS: BP 152/97; PULSE 66; RESP 18
== END 2020-10-28 13:21 | disposition home health service (06) | DRG 39 ==
LOC: 2ORMAIN 07:08 → 2SICU 12:02
PROVIDERS: ADMIT Surgery; ATTEND Surgery
PROC: 03UL0KZ Supplement Left Internal Carotid Artery with Nonautologous Tissue Substitute, Open Approach (ICD-10-PCS; 2020-10-27)
PROC: 03CL0ZZ Extirpation of Matter from Left Internal Carotid Artery, Open Approach (ICD-10-PCS; principal; 2020-10-27 09:00)
DX: I65.22 Occlusion and stenosis of left carotid artery (principal); E03.9 Hypothyroidism, unspecified; E78.5 Hyperlipidemia, unspecified; I10 Essential (primary) hypertension; F17.200 Nicotine dependence, unspecified, uncomplicated; I70.8 Atherosclerosis of other arteries; Z79.02 Long term (current) use of antithrombotics/antiplatelets; Z79.890 Hormone replacement therapy; Z79.899 Other long term (current) drug therapy; Z90.49 Acquired absence of other specified parts of digestive tract; Z88.5 Allergy status to narcotic agent
CPT/HCPCS: 36415; 80048; 80051; 82565; 84520; 85025; 85027; 86850; 86900; 86901; 88304

== ENCOUNTER 2020-10-29 14:43 | Emergency (ER) | payer MEDICARE ==
[2020-10-29] MEDS ORDERED: fentaNYL (PF) 50 MCG/ML 2 ML AMP IV STA (15:31)
[2020-10-29] MEDS ORDERED: SODIUM CHLORIDE 0.9% 500 ML 500 ML IV STA (15:48)
[2020-10-29] MEDS ORDERED: SODIUM CHLORIDE 0.9% 1,000 ML IV STA (15:48)
--- NOTE | 2020-10-29 15:48 | ED ---
Neuro HPI - General Chief Complaint: Neuro Symptoms/Deficit Stated Complaint: stroke symptoms Time Seen by Provider: 10/29/20 15:15 Source: patient, RN notes reviewed Mode of arrival: ambulatory Limitations: no limitations - History of Present Illness Is the patient presenting with stroke symptoms?: No Initial Comments: She has some trouble swallowing she states. Some trouble with memory and phonation. Also states she has some right facial numbness No headache she does complain some mild discomfort just proximal to the left carotid endarterectomy incision no fevers chills sweats no nausea no vomiting no other modifying f actors at this time - Related Data Home Medications: Home Medications Medication Instructions Recorded Confirmed Clopidogrel [Plavix] 75 mg PO DAILY 10/21/20 10/29/20 Atorvastatin [Lipitor] 40 mg PO DAILY 10/29/20 10/29/20 Levothyroxine Sodium [Synthroid] 75 mcg PO DAILY 10/29/20 10/29/20 Allergies/Adverse Reactions: Allergies Allergy/AdvReac Type Severity Reaction Status Date / Time codeine Allergy Rash/Hives, Verified 10/29/20 16:40 dyspnea Sulfa (Sulfonamide Allergy Rash/Hives, Verified 10/29/20 16:40 Antibiotics) dyspnea venom-honey bee Allergy Dyspnea, Verified 10/29/20 16:40 [bee venom (honey bee)] Rash Review of Systems ROS Statement: Those systems with pertinent positive or pertinent negative responses have been documented in the HPI. ROS Other: All systems not noted in ROS Statement are negative. General Exam - General Exam Comments Initial Comments: This is a well-developed well-nourished awake alert oriented 3 female Limitations: no limitations General appearance: alert, anxious Head exam: Present: atraumatic, normocephalic, normal inspection Eye exam: Present: normal appearance, PERRL, EOMI. Absent: scleral icterus, co njunctival injection, periorbital swelling ENT exam: Present: mucous membranes dry Neck exam: Present: full ROM, other (Discharge. Bruits are is a left carotid endarterectomy incision that appears be without evidence of infectious process drainage or wound dehiscence at this time sutures are intact.). Absent: tenderness, meningismus, lymphadenopathy Respiratory exam: Present: normal lung sounds bilaterally. Absent: respiratory distress, wheezes, rales, rhonchi, stridor Cardiovascular Exam: Present: regular rate, normal rhythm, normal heart sounds. Absent: systolic murmur, diastolic murmur, rubs, gallop, clicks GI/Abdominal exam: Present: soft, normal bowel sounds. Absent: distended, tenderness, guarding, rebound, rigid Extremities exam: Present: normal inspection, full ROM, normal capillary refill. Absent: tenderness, pedal edema, joint swelling, calf tenderness Back exam: Present: normal inspection Neurological exam: Present: alert, oriented X3, CN II-XII intact Psychiatric exam: Present: normal affect, normal mood Skin exam: Present: warm, dry, intact, normal color. Absent: rash Stroke MDM - Lab Data Result diagrams: 10/29/20 15:37 10/29/20 15:37 Lab Results 10/29/20 10/29/20 10/29/20 Range/Units 15:37 15:37 15:37 WBC 11.5 H (3.8-10.6) k/uL RBC 4.72 (3.80-5.40) m/uL Hgb 14.5 (11.4-16.0) gm/dL Hct 42.5 (34.0-46.0) % MCV 90.1 (80.0-100.0) fL MCH 30.7 (25.0-35.0) pg MCHC 34.1 (31.0-37.0) g/dL RDW 13.6 (11.5-15.5) % Plt Count 171 (150-450) k/uL MPV 8.9 Neutrophils % 64 % Lymphocytes % 28 % Monocytes % 6 % Eosinophils % 1 % Basophils % 0 % Neutrophils # 7.4 (1.3-7.7) k/uL Lymphocytes # 3.2 (1.0-4.8) k/uL Monocytes # 0.7 (0-1.0) k/uL Eosinophils # 0.1 (0-0.7) k/uL Basophils # 0.1 (0-0.2) k/uL PT 9.9 (9.0-12.0) sec INR 0.9 (<1.2) APTT 20.6 L (22.0-30.0) sec Sodium 142 (137-145) mmol/L Potassium 3.9 (3.5-5.1) mmol/L Chloride 109 H (98-107) mmol/L Carbon Dioxide 22 (22-30) mmol/L Anion Gap 11 mmol/L BUN 16 (7-17) mg/dL Creatinine 1.04 (0.52-1.04) mg/dL Est GFR (CKD-EPI)AfAm 62 (>60 ml/min/1.73 sqM) Est GFR (CKD-EPI)NonAf 54 (>60 ml/min/1.73 sqM) Glucose 104 H (74-99) mg/dL Calcium 9.5 (8.4-10.2) mg/dL Total Bilirubin 0.6 (0.2-1.3) mg/dL AST 38 H (14-36) U/L ALT 22 (4-34) U/L Alkaline Phosphatase 146 H (38-126) U/L Creatine Kinase 185 H (30-135) U/L Troponin I (0.000-0.034) ng/mL Total Protein 7.0 (6.3-8.2) g/dL Albumin 4.1 (3.5-5.0) g/dL 10/29/20 Range/Units 15:37 WBC (3.8-10.6) k/uL RBC (3.80-5.40) m/uL Hgb (11.4-16.0) gm/dL Hct (34.0-46.0) % MCV (80.0-100.0) fL MCH (25.0-35.0) pg MCHC (31.0-37.0) g/dL RDW (11.5-15.5) % Plt Count (150-450) k/uL MPV Neutrophils % % Lymphocytes % % Monocytes % % Eosinophils % % Basophils % % Neutrophils # (1.3-7.7) k/uL Lymphocytes # (1.0-4.8) k/uL Monocytes # (0-1.0) k/uL Eosinophils # (0-0.7) k/uL Basophils # (0-0.2) k/uL PT (9.0-12.0) sec INR (<1.2) APTT (22.0-30.0) sec Sodium (137-145) mmol/L Potassium (3.5-5.1) mmol/L Chloride (98-107) mmol/L Carbon Dioxide (22-30) mmol/L Anion Gap mmol/L BUN (7-17) mg/dL Creatinine (0.52-1.04) mg/dL Est GFR (CKD-EPI)AfAm (>60 ml/min/1.73 sqM) Est GFR (CKD-EPI)NonAf (>60 ml/min/1.73 sqM) Glucose (74-99) mg/dL Calcium (8.4-10.2) mg/dL Total Bilirubin (0.2-1.3) mg/dL AST (14-36) U/L ALT (4-34) U/L Alkaline Phosphatase (38-126) U/L Creatine Kinase (30-135) U/L Troponin I <0.012 (0.000-0.034) ng/mL Total Protein (6.3-8.2) g/dL Albumin (3.5-5.0) g/dL - NIH Stroke Scale 1a. Level of Consciousness: (0) alert 1b. LOC Questions: (0) answers correctly 1c. LOC Commands: (0) performs tasks correctly 2. Best Gaze: (0) normal 3. Visual: (0) no visual loss 4. Facial Palsy: (0) normal symmetrical movement 5a. Motor Arm Left: (0) no drift 5b. Motor Arm Right: (0) no drift 6a. Motor Leg Left: (0) no drift 6b. Motor Leg Right: (0) no drift 7. Limb Ataxia: (0) absent 8. Sensory: (0) normal 9. Best Language: (0) no aphasia 10. Dysarthria: (0) normal 11. Extinction/Inattention: (0) no abnormality - Medical Decision Making Imaging reviewed no evidence of acute findings. Patient had no symptoms upon my examination as well as multiple re-evaluations. My plan was to consult/contact cancer surgery patient did not want to wait for this did occur she is choosing to go home instead. She was given return parameters. - EKG Data -: EKG Interpreted by Me EKG shows normal: sinus rhythm (Sinus rhythm rate of 80. Interval 158 QRS durat ion 80 QT since QTC 370/[address] configuration) Past Medical History Past Medical History: Hyperlipidemia, Hypertension, Osteoarthritis (OA), Thyroid Disorder Additional Past Medical History / Comment(s): Hypothyroid. Hx Allergies, migraines. Carotid stenosis, left sided endardectomy History of Any Multi-Drug Resistant Organisms: None Reported Past Surgical History: Appendectomy, Section, Cholecystectomy, Orthopedic Surgery, Tonsillectomy, Tubal Ligation Additional Past Surgical History / Comment(s): C-S x3. RT Elbow Sx for tennis elbow. Lt Knee surg Past Anesthesia/Blood Transfusion Reactions: Previous Problems w/ Anesthesia, Motion Sickness Additional Past Anesthesia/Blood Transfusion Reaction / Comment(s): States difficulty waking up, took long time Past Psychological History: Anxiety, Depression Smoking Status: Current every day smoker Past Alcohol Use History: None Reported Past Drug Use History: None Reported - Past Family History Sister(s) Family Medical History: Cancer Course Vital Signs 10/29/20 10/29/20 14:53 17:39 Temperature 98.1 F Pulse Rate 85 77 Respiratory 18 20 Rate Blood Pressure 205/82 145/77 O2 Sat by Pulse 97 99 Oximetry Disposition Clinical Impression: Condition not found, History of left-sided carotid endarterectomy Disposition: HOME SELF-CARE Condition: Good Instructions (If sedation given, give patient instructions): Carotid Endarterectomy (DC) Additional Instructions: Keep follow-up with Dr. Graves as discussed return if any problems Is patient prescribed a controlled substance at d/c from ED?: No Referrals: Juan Zimmer DO [Primary Care Provider] - 1-2 days
[2020-10-29 15:50] LABS: Basophils # (A) 0.1 k/uL (0-0.2); Basophils % (A) 0 %; Eosinophils # (A) 0.1 k/uL (0-0.7); Eosinophils % (A) 1 %; HCT 42.5 % (34.0-46.0); HGB 14.5 gm/dL (11.4-16.0); Lymphocytes # (A) 3.2 k/uL (1.0-4.8); Lymphocytes % (A) 28 %; MCH 30.7 pg (25.0-35.0); MCHC 34.1 g/dL (31.0-37.0); MCV 90.1 fL (80.0-100.0); Mean Platelet Volume 8.9; Monocytes # (A) 0.7 k/uL (0-1.0); Monocytes % (A) 6 %; Neutrophils # (A) 7.4 k/uL (1.3-7.7); Neutrophils % (A) 64 %; Platelet Count 171 k/uL (150-450); RBC 4.72 m/uL (3.80-5.40); RDW 13.6 % (11.5-15.5); WBC 11.5 k/uL (3.8-10.6)
--- NOTE | 2020-10-29 16:01 | XR ---
EXAMINATION TYPE: XR chest 2V DATE OF EXAM: 10/29/2020 COMPARISON: NONE TECHNIQUE: PA and lateral views submitted. HISTORY: Altered mental status FINDINGS: The lungs are clear and there is no pneumothorax, pleural effusion, or focal pneumonia. Surgical cl ips in the abdomen. Hypertrophic change right AC. No overt failure. IMPRESSION: 1. No acute process.
[2020-10-29 16:03] LABS: Albumin 4.1 g/dL (3.5-5.0); Calcium 9.5 mg/dL (8.4-10.2); Potassium 3.9 mmol/L (3.5-5.1); Total Bilirubin 0.6 mg/dL (0.2-1.3)
[2020-10-29 16:12] LABS: INR 0.9 (<1.2); Partial Thromboplastin Time 20.6 sec (22.0-30.0); Prothrombin Time 9.9 sec (9.0-12.0)
--- NOTE | 2020-10-29 17:23 | CT ---
EXAMINATION TYPE: CT brain wo con DATE OF EXAM: 10/29/2020 HISTORY: Weakness post endarterectomy. Acute onset neuro deficit. Code stroke. CT DLP: 1581.8 mGycm. Automated Exposure Control for Dose Reduction was Utilized. TECHNIQUE: CT scan of the head is performed without contrast. COMPARISON: None. FINDINGS: There is no acute intracranial hemorrhage or midline shift identified. There is mild to m oderate diffuse ventricular and sulcal prominence consistent with diffuse age-related cerebral atroph y. There is mild low-attenuation in the periventricular white matter consistent with chronic small v essel ischemic change. The globes are intact and the visualized sinuses are clear. IMPRESSION: No acute intracranial hemorrhage or midline shift. There is mild to moderate diffuse ce rebral atrophy and mild chronic small vessel ischemic change noted.
--- NOTE | 2020-10-29 17:31 | CT ---
EXAMINATION TYPE: CT angio head neck DATE OF EXAM: 10/29/2020 HISTORY: Weakness post endarterectomy. COMPARISON: CTA neck September 02, 2020 CT DLP: 1581.8 mGycm. Automated Exposure Control for Dose Reduction was Utilized. TECHNIQUE: CTA scan of the head and neck are performed with IV Contrast, patient injected with 65 mL of Isovue 370, axial images are obtained, coronal and sagittal reformatted images are reviewed. Thre e-D reconstructed images are created on an independent workstation and reviewed. FINDINGS: Carotid/Vascular Structures: There is patent anterior communicating artery. There is hypoplastic left A1 segment with filling of the A2 segment due to patent anterior communicating artery. No significan t focal stenosis or aneurysmal change in the anterior circulation. Codominant vertebral arteries fill the basilar artery. There is a patent left posterior communicating artery filling the left P2 segment.. Hypoplastic left P1 segment. There is no significant focal sten osis or aneurysmal change in the posterior circulation. There is hypoplastic right posterior communic ating artery. Persistent moderate to severe mixed plaque in the aortic arch with most prominent noncalcified plaque extending into left subclavian artery. Near-complete occlusion redemonstrated image 31 series 501 si milar to prior. Right common carotid artery shows normal origin from the right brachiocephalic artery. Some tortuous course to the common carotid arteries bilaterally. No significant stenosis. Persistent moderate mixed plaque in right carotid bulb extending into proximal internal and external carotid arteries. Possibl e significant stenosis at origin of right external carotid artery redemonstrated. No significant sten osis in the right internal carotid artery which shows tortuous course proximal to mid aspects. Mild c alcified plaque distally. No significant stenosis. Patent left external carotid artery without significant stenosis after presumed left-sided surgery. P atent left internal carotid artery at bulb without significant plaque or stenosis after left-sided john rgery. Slight tortuous course to the proximal to mid left internal carotid artery. Mild calcified rojelio que distally. No significant stenosis. Other: Mild to moderate emphysematous change of visualized upper lungs. Some reversal of normal cervi jenny curvature centered at C4-C5 level. IMPRESSION: Marked interval improvement after left-sided neck surgery. No significant residual plaque or stenosis. Stable severe stenosis in the proximal left subclavian artery. No new stenosis or aneur ysm.
[2020-10-29 17:40] VITALS: BP 145/77; PULSE 77; RESP 20
[2020-10-29 18:14] VITALS: TEMP 98.5
== END 2020-10-29 18:13 | disposition home or self-care (01) ==
LOC: EC 14:43
DX: Z98.890 Other specified postprocedural states (principal); E03.9 Hypothyroidism, unspecified; E78.5 Hyperlipidemia, unspecified; F17.200 Nicotine dependence, unspecified, uncomplicated; I10 Essential (primary) hypertension; M19.90 Unspecified osteoarthritis, unspecified site; F41.9 Anxiety disorder, unspecified; F32.9 Major depressive disorder, single episode, unspecified; Z79.02 Long term (current) use of antithrombotics/antiplatelets; Z79.899 Other long term (current) drug therapy
CPT/HCPCS: 36415; 93005; 80053; 82550; 84484; 85025; 85610; 85730; 71046; 70496; 70450; 70498; 99284; 96374; 96361; J3010; Q9967

== ENCOUNTER → 2022-02-02 | Outpatient (CLI) | payer MEDICARE ==
--- NOTE | 2022-02-02 12:45 | XR ---
EXAMINATION TYPE: XR chest 2V DATE OF EXAM: 02/02/2022 COMPARISON: Chest x-ray October 29, 2020 HISTORY: Macular edema. TECHNIQUE: Frontal and lateral views of the chest are obtained. FINDINGS: Improved inspiration on current study. There is no focal air space opacity, pleural effusi on, or pneumothorax seen. The cardiac silhouette size is within normal limits. The osseous structu res are intact. Cholecystectomy clips are redemonstrated. IMPRESSION: No acute process.
[2022-02-03 11:04] LABS: HLA B27 NEGATIVE
[2022-02-03 11:32] LABS: Angiotensin-1 Converting Enz. 17 U/L (8-52)
== END | disposition home or self-care (01) ==
LOC: LABWHC1 11:59
PROVIDERS: ATTEND Ophthalmology
DX: H35.353 Cystoid macular degeneration, bilateral (principal)
CPT/HCPCS: 36415; 71046; 82164; 86038; 86431; 86780; 86812

== ENCOUNTER 2022-02-14 11:25 | Emergency (ER) | payer MEDICARE, OTHER ==
[2022-02-14 11:42] VITALS: TEMP 97.5
[2022-02-14] MEDS ORDERED: ONDANSETRON 4 MG/2 ML VIAL IVP STA (12:09)
[2022-02-14] MEDS ORDERED: SODIUM CHLORIDE 0.9% 1,000 ML IV STA (12:09)
[2022-02-14] MEDS ORDERED: SODIUM CHLORIDE 0.9% 500 ML 500 ML IV STA (12:09)
[2022-02-14 12:36] LABS: Appearance,Urine Clear (Clear); Bilirubin,Urine Negative (Negative); Blood,Urine Negative (Negative); Color,Urine Yellow; Glucose,Urine (UA) Negative (Negative); Ketones,Urine Negative (Negative); Leukocyte Esterase,Urine Negative (Negative); Nitrite,Urine Negative (Negative); Protein,Urine Negative (Negative); Specific Gravity,Urine 1.018 (1.001-1.035); Urobilinogen,Urine <2.0 mg/dL (<2.0)
--- NOTE | 2022-02-14 12:53 | XR ---
EXAMINATION TYPE: XR chest 2V DATE OF EXAM: 02/14/2022 COMPARISON: 02/02/2022 INDICATION: Weakness and confusion TECHNIQUE: Frontal and lateral views of the chest are obtained. FINDINGS: The heart size is normal. The pulmonary vasculature is normal. The lungs are clear. IMPRESSION: 1. No acute pulmonary process.
[2022-02-14 12:58] LABS: Basophils # (A) 0.1 k/uL (0-0.2); Basophils % (A) 1 %; Eosinophils # (A) 0.2 k/uL (0-0.7); Eosinophils % (A) 2 %; HCT 45.8 % (34.0-46.0); HGB 14.8 gm/dL (11.4-16.0); Lymphocytes # (A) 2.9 k/uL (1.0-4.8); Lymphocytes % (A) 26 %; MCH 29.4 pg (25.0-35.0); MCHC 32.3 g/dL (31.0-37.0); MCV 90.9 fL (80.0-100.0); Mean Platelet Volume 8.8; Monocytes # (A) 0.6 k/uL (0-1.0); Monocytes % (A) 6 %; Neutrophils # (A) 7.1 k/uL (1.3-7.7); Neutrophils % (A) 64 %; Platelet Count 176 k/uL (150-450); RBC 5.04 m/uL (3.80-5.40); WBC 11.1 k/uL (3.8-10.6)
[2022-02-14 13:18] LABS: Albumin 4.5 g/dL (3.5-5.0); Calcium 9.2 mg/dL (8.4-10.2); Potassium 3.9 mmol/L (3.5-5.1); Total Bilirubin 1.3 mg/dL (0.2-1.3); Total Protein 7.8 g/dL (6.3-8.2)
[2022-02-14 13:35] VITALS: BP 148/68; PULSE 76; RESP 18
--- NOTE | 2022-02-14 14:17 | ED ---
Nausea/Vomiting/Diarrhea HPI - General Chief complaint: Nausea/Vomiting/Diarrhea Stated complaint: fever, headache Time Seen by Provider: 02/14/22 11:43 Source: patient, RN notes reviewed Mode of arrival: wheelchair Limitations: no limitations - History of Present Illness Initial comments: This a 71-year-old female presents emergency Department with multiple complaints. Patient states that she's had nausea vomiting diarrhea fatigue bodyaches and fever. Patient is afebrile upon arrival. She states she's had slight cough no chest pain or shortness of breath. Patient states that she's had nausea decreased oral intake she states she is constantly fatigued she feels like she hasn't slept enough. Patient denies any sick contacts. Patient did attempt to see her PCP thought she may have covid And will not see her. - Related Data Home Medications Medication Instructions Recorded Confirmed Clopidogrel [Plavix] 75 mg PO DAILY 10/21/20 02/14/22 Levothyroxine Sodium [Synthroid] 75 mcg PO DAILY 10/29/20 02/14/22 Atorvastatin Calcium [Lipitor] 80 mg PO HS 02/14/22 02/14/22 SUMAtriptan succinate [Imitrex] 25 mg PO BID PRN 02/14/22 02/14/22 Topiramate [Topamax] 50 mg PO HS 02/14/22 02/14/22 amLODIPine [Norvasc] 5 mg PO DAILY 02/14/22 02/14/22 prednisoLONE ACETATE 1% OPHTH 1 drops RIGHT EYE QID 02/14/22 02/14/22 [Pred Forte 1%] Allergies Allergy/AdvReac Type Severity Reaction Status Date / Time codeine Allergy Rash/Hives, Verified 02/14/22 12:47 dyspnea Sulfa (Sulfonamide Allergy Rash/Hives, Verified 02/14/22 12:47 Antibiotics) dyspnea venom-honey bee Allergy Dyspnea, Verified 02/14/22 12:47 [bee venom (honey bee)] Rash Review of Systems ROS Statement: Those systems with pertinent positive or pertinent negative responses have been documented in the HPI. ROS Other: All systems not noted in ROS Statement are negative. Past Medical History Past Medical History: Hyperlipidemia, Hypertension, Osteoarthritis (OA), Thyroid Disorder Additional Past Medical History / Comment(s): Hypothyroid. Hx Allergies, migraines. Carotid stenosis, left sided endardectomy History of Any Multi-Drug Resistant Organisms: None Reported Past Surgical History: Appendectomy, Section, Cholecystectomy, Orthopedic Surgery, Tonsillectomy, Tubal Ligation Additional Past Surgical History / Comment(s): C-S x3. RT Elbow Sx for tennis elbow. Lt Knee surg Past Anesthesia/Blood Transfusion Reactions: Previous Problems w/ Anesthesia, Motion Sickness Additional Past Anesthesia/Blood Transfusion Reaction / Comment(s): States difficulty waking up, took long time Past Psychological History: Anxiety, Depression Smoking Status: Current every day smoker Past Alcohol Use History: None Reported Past Drug Use History: None Reported - Past Family History Sister(s) Family Medical History: Cancer General Exam Limitations: no limitations General appearance: alert, in no apparent distress Head exam: Present: atraumatic, normocephalic, normal inspection Eye exam: Present: normal appearance, PERRL, EOMI. Absent: scleral icterus, conjunctival injection, periorbital swelling ENT exam: Present: normal exam, normal oropharynx, mucous membranes moist Neck exam: Present: normal inspection, full ROM. Absent: tenderness, meningismus, lymphadenopathy Respiratory exam: Present: normal lung sounds bilaterally. Absent: respiratory distress, wheezes, rales, rhonchi, stridor Cardiovascular Exam: Present: regular rate, normal rhythm, normal heart sounds. Absent: systolic murmur, diastolic murmur, rubs, gallop, clicks GI/Abdominal exam: Present: soft, normal bowel sounds. Absent: distended, te nderness, guarding, rebound, rigid Neurological exam: Present: alert, oriented X3, CN II-XII intact Course Vital Signs 02/14/22 02/14/22 11:38 13:33 Temperature 97.5 F L Pulse Rate 79 76 Respiratory 16 18 Rate Blood Pressure 154/76 148/68 O2 Sat by Pulse 98 97 Oximetry Medical Decision Making - Medical Decision Making Patient has a negative workup patient has negative: 19, influenza urinalysis x- ray unremarkable. I do believe this is related to a viral illness. Patient was hydrated will be discharged in stable condition. - Lab Data Result diagrams: 02/14/22 12:27 02/14/22 12:27 Lab Results 02/14/22 02/14/22 02/14/22 Range/Units 12:15 12:27 12:27 WBC 11.1 H (3.8-10.6) k/uL RBC 5.04 (3.80-5.40) m/uL Hgb 14.8 (11.4-16.0) gm/dL Hct 45.8 (34.0-46.0) % MCV 90.9 (80.0-100.0) fL MCH 29.4 (25.0-35.0) pg MCHC 32.3 (31.0-37.0) g/dL RDW 14.0 (11.5-15.5) % Plt Count 176 (150-450) k/uL MPV 8.8 Neutrophils % 64 % Lymphocytes % 26 % Monocytes % 6 % Eosinophils % 2 % Basophils % 1 % Neutrophils # 7.1 (1.3-7.7) k/uL Lymphocytes # 2.9 (1.0-4.8) k/uL Monocytes # 0.6 (0-1.0) k/uL Eosinophils # 0.2 (0-0.7) k/uL Basophils # 0.1 (0-0.2) k/uL Sodium (137-145) mmol/L Potassium (3.5-5.1) mmol/L Chloride (98-107) mmol/L Carbon Dioxide (22-30) mmol/L Anion Gap mmol/L BUN (7-17) mg/dL Creatinine (0.52-1.04) mg/dL Est GFR (CKD-EPI)AfAm (>60 ml/min/1.73 sqM) Est GFR (CKD-EPI)NonAf (>60 ml/min/1.73 sqM) Glucose (74-99) mg/dL Calcium (8.4-10.2) mg/dL Total Bilirubin (0.2-1.3) mg/dL AST (14-36) U/L ALT (4-34) U/L Alkaline Phosphatase (38-126) U/L Troponin I (0.000-0.034) ng/mL Total Protein (6.3-8.2) g/dL Albumin (3.5-5.0) g/dL Lipase (23-300) U/L Urine Color Yellow Urine Appearance Clear (Clear) Urine pH 6.0 (5.0-8.0) Ur Specific [place] 1.018 (1.001-1.035) Urine Protein Negative (Negative) Urine Glucose (UA) Negative (Negative) Urine Ketones Negative (Negative) Urine Blood Negative (Negative) Urine Nitrite Negative (Negative) Urine Bilirubin Negative (Negative) Urine Urobilinogen <2.0 (<2.0) mg/dL Ur Leukocyte Esterase Negative (Negative) Coronavirus (PCR) Not Detected (Not Detectd) Heterophile Antibody (Negative) Influenza Type A RNA (Not Detectd) Influenza Type B (PCR) (Not Detectd) 02/14/22 02/14/22 02/14/22 Range/Units 12:27 12:27 12:27 WBC (3.8-10.6) k/uL RBC (3.80-5.40) m/uL Hgb (11.4-16.0) gm/dL Hct (34.0-46.0) % MCV (80.0-100.0) fL MCH (25.0-35.0) pg MCHC (31.0-37.0) g/dL RDW (11.5-15.5) % Plt Count (150-450) k/uL MPV Neutrophils % % Lymphocytes % % Monocytes % % Eosinophils % % Basophils % % Neutrophils # (1.3-7.7) k/uL Lymphocytes # (1.0-4.8) k/uL Monocytes # (0-1.0) k/uL Eosinophils # (0-0.7) k/uL Basophils # (0-0.2) k/uL Sodium 139 (137-145) mmol/L Potassium 3.9 (3.5-5.1) mmol/L Chloride 107 (98-107) mmol/L Carbon Dioxide 21 L (22-30) mmol/L Anion Gap 11 mmol/L BUN 19 H (7-17) mg/dL Creatinine 1.05 H (0.52-1.04) mg/dL Est GFR (CKD-EPI)AfAm 61 (>60 ml/min/1.73 sqM) Est GFR (CKD-EPI)NonAf 53 (>60 ml/min/1.73 sqM) Glucose 105 H (74-99) mg/dL Calcium 9.2 (8.4-10.2) mg/dL Total Bilirubin 1.3 (0.2-1.3) mg/dL AST 45 H (14-36) U/L ALT 29 (4-34) U/L Alkaline Phosphatase 180 H (38-126) U/L Troponin I <0.012 (0.000-0.034) ng/mL Total Protein 7.8 (6.3-8.2) g/dL Albumin 4.5 (3.5-5.0) g/dL Lipase 96 (23-300) U/L Urine Color Urine Appearance (Clear) Urine pH (5.0-8.0) Ur Specific [place] (1.001-1.035) Urine Protein (Negative) Urine Glucose (UA) (Negative) Urine Ketones (Negative) Urine Blood (Negative) Urine Nitrite (Negative) Urine Bilirubin (Negative) Urine Urobilinogen (<2.0) mg/dL Ur Leukocyte Esterase (Negative) Coronavirus (PCR) (Not Detectd) Heterophile Antibody Negative (Negative) Influenza Type A RNA (Not Detectd) Influenza Type B (PCR) (Not Detectd) 02/14/22 Range/Units 13:43 WBC (3.8-10.6) k/uL RBC (3.80-5.40) m/uL Hgb (11.4-16.0) gm/dL Hct (34.0-46.0) % MCV (80.0-100.0) fL MCH (25.0-35.0) pg MCHC (31.0-37.0) g/dL RDW (11.5-15.5) % Plt Count (150-450) k/uL MPV Neutrophils % % Lymphocytes % % Monocytes % % Eosinophils % % Basophils % % Neutrophils # (1.3-7.7) k/uL Lymphocytes # (1.0-4.8) k/uL Monocytes # (0-1.0) k/uL Eosinophils # (0-0.7) k/uL Basophils # (0-0.2) k/uL Sodium (137-145) mmol/L Potassium (3.5-5.1) mmol/L Chloride (98-107) mmol/L Carbon Dioxide (22-30) mmol/L Anion Gap mmol/L BUN (7-17) mg/dL Creatinine (0.52-1.04) mg/dL Est GFR (CKD-EPI)AfAm (>60 ml/min/1.73 sqM) Est GFR (CKD-EPI)NonAf (>60 ml/min/1.73 sqM) Glucose (74-99) mg/dL Calcium (8.4-10.2) mg/dL Total Bilirubin (0.2-1.3) mg/dL AST (14-36) U/L ALT (4-34) U/L Alkaline Phosphatase (38-126) U/L Troponin I (0.000-0.034) ng/mL Total Protein (6.3-8.2) g/dL Albumin (3.5-5.0) g/dL Lipase (23-300) U/L Urine Color Urine Appearance (Clear) Urine pH (5.0-8.0) Ur Specific [place] (1.001-1.035) Urine Protein (Negative) Urine Glucose (UA) (Negative) Urine Ketones (Negative) Urine Blood (Negative) Urine Nitrite (Negative) Urine Bilirubin (Negative) Urine Urobilinogen (<2.0) mg/dL Ur Leukocyte Esterase (Negative) Coronavirus (PCR) (Not Detectd) Heterophile Antibody (Negative) Influenza Type A RNA Not Detected (Not Detectd) Influenza Type B (PCR) Not Detected (Not Detectd) Disposition Clinical Impression: Dehydration, Viral illness Disposition: HOME SELF-CARE Condition: Stable Instructions (If sedation given, give patient instructions): Viral Syndrome (ED) Additional Instructions: Please return to the Emergency Department if symptoms worsen or any other concerns. Is patient prescribed a controlled substance at d/c from ED?: No Referrals: Juan Zimmer DO [Primary Care Provider] - 1-2 days Time of Disposition: 14:16
== END 2022-02-14 14:54 | disposition home or self-care (01) ==
LOC: EC 11:25
DX: B34.9 Viral infection, unspecified (principal); E86.0 Dehydration; Z20.822 Contact with and (suspected) exposure to COVID-19; I10 Essential (primary) hypertension; E78.5 Hyperlipidemia, unspecified; E03.9 Hypothyroidism, unspecified; M19.90 Unspecified osteoarthritis, unspecified site; F32.A Depression, unspecified; F41.9 Anxiety disorder, unspecified; F17.200 Nicotine dependence, unspecified, uncomplicated; Z79.890 Hormone replacement therapy; Z79.02 Long term (current) use of antithrombotics/antiplatelets; Z79.899 Other long term (current) drug therapy
CPT/HCPCS: 36415; 93005; 80053; 83690; 84484; 85025; 86308; 81003; 87502; 87635; 71046; 99284; 96374; 96361 ×2; J2405

== ENCOUNTER → 2023-01-11 | Outpatient (CLI) | payer MEDICARE | END | disposition home or self-care (01) | LOC: LABWHC1 11:45 | PROVIDERS: ATTEND Ophthalmology | DX: G70.00 Myasthenia gravis without (acute) exacerbation (principal) | CPT/HCPCS: 36415 ==

== ENCOUNTER → 2023-05-31 | Outpatient (CLI) | payer MEDICARE ==
--- NOTE | 2023-05-31 17:08 | P.SLEEP ---
History of Present Illness DATE: 05/31/2023 CONSULTATION/NEW PATIENT EVALUATION HISTORY OF PRESENT ILLNESS/SLEEP-WAKE EVALUATION: 73-year-old lady had been evaluated in the sleep center for possible obstructive sleep apnea hypopnea syndrome. SLEEP SCHEDULE: Usually sleep schedule from 11 PM to 8 AM 7 days a week. FALLING ASLEEP: Sometimes patient has difficulties with the falling asleep. DURING SLEEP: Patient may wake up from sleep with necessity to use the restroom. No history of hypnogogical hallucinations, sleep paralysis, or cataplexy. DURING THE DAY/WAKE STATE: Patient may fill sleepiness during the day. [place] sleepiness scale is 6. Patient takes up to 4 naps per week. PAST MEDICAL HISTORY: Hypertension, hyperlipidemia, hypothyroidism, migraines, floppy eyelid syndrome. PAST SURGICAL HISTORY: Carotid endarterectomy, cholecystectomy. MEDICATIONS: Levoxyl 50 g once a day, Lipitor 20 mg once a day, amlodipine 5 mg once a day, aspirin 81 mg once a day. SOCIAL HISTORY: Positive for smoking for about 50 pack years, continue to smoke, alcohol consumption occasional. FAMILY HISTORY: Heart problems, epilepsy, cancer, diabetes. REVIEW OF SYSTEMS: Awakenings from sleep, sleepiness during the day. No fevers. No double vision. No recent chest pain. No shortness of breath. No abdominal pain. No bleeding episodes. No blood in urine. No seizure episodes. PHYSICAL EXAMINATION: GENERAL: A pleasant patient without any distress. VITAL SIGNS: BP 111/80 , HR 95 , RR 16 , weight 154.2 pounds, height 4 foot 11-3/4 inches, body mass index 30.3. HEENT: PERRLA, EOMI. Evaluation of oropharynx showed tongue protrudes midline, low position of soft palate Mallampati 3 NECK: Supple. No JVD. Thyroid is not palpable. 14.5 inches in circumference. LUNGS: Clear to percussion and to auscultation. Good air exchange. No wheezing or rhonchi. HEART: S1, S2 regular. Systolic murmure. Bowel sounds are present. No or ganomegaly appreciated. EXTREMITIES: No clubbing or cyanosis. [employer]ATOR: Awake, alert, and oriented x3. Cranial nerves 2 to 7 intact. There is no fasciculation or atrophy noted. No focal deficits observed. ASSESSMENT: 1. Awakenings from sleep, small oropharyngeal airspace, sleepiness patient takes naps. Obstructive sleep apnea hypopnea syndrome. 2. Floppy eyelid syndrome, which increase risk for obstructive sleep apnea. 3. History of hypertension. 4. Hyperlipidemia. 5 hypothyroidism. 6 . history of migraines 7. Status post carotid endarterectomy. 8. status post cholecystectomy. PLAN: 1. Polysomnography for evaluation of patient's breathing during sleep. 2. Following plan after eating sleep study 3. Preferable position during sleep on the side. 4. No driving if patient feels any sleepiness. Patient is aware of civil and criminal liability for unsafe driving. 5. Sleep hygiene with regular sleep time for at least 7.5-8 hours. 6. Watching weight. Thank you very much for referring this patient for consultation. Sincerely, Cristofer Islas MD, PhD, FAASM. Diplomat of [place] [employer], Sleep Medicine Board by [place] [employer] [place] [employer] [facility] Past Medical History Past Medical History: Hyperlipidemia, Hypertension, Osteoarthritis (OA), Thyroid Disorder Additional Past Medical History / Comment(s): Hypothyroid. Hx Allergies, migraines. Carotid stenosis, left sided endardectomy History of Any Multi-Drug Resistant Organisms: None Reported Past Surgical History: Appendectomy, Section, Cholecystectomy, Ortho pedic Surgery, Tonsillectomy, Tubal Ligation Additional Past Surgical History / Comment(s): C-S x3. RT Elbow Sx for tennis elbow. Lt Knee surg Past Anesthesia/Blood Transfusion Reactions: Previous Problems w/ Anesthesia, Motion Sickness Additional Past Anesthesia/Blood Transfusion Reaction / Comment(s): States difficulty waking up, took long time Past Psychological History: Anxiety, Depression Smoking Status: Current every day smoker Past Alcohol Use History: None Reported Past Drug Use History: None Reported - Past Family History Sister(s) Family Medical History: Cancer Medications and Allergies Home Medications Medication Instructions Recorded Confirmed Type Clopidogrel [Plavix] 75 mg PO DAILY 10/21/20 02/14/22 History Levothyroxine Sodium [Synthroid] 75 mcg PO DAILY 10/29/20 02/14/22 History Atorvastatin Calcium [Lipitor] 80 mg PO HS 02/14/22 02/14/22 History SUMAtriptan succinate [Imitrex] 25 mg PO BID PRN 02/14/22 02/14/22 History Topiramate [Topamax] 50 mg PO HS 02/14/22 02/14/22 History amLODIPine [Norvasc] 5 mg PO DAILY 02/14/22 02/14/22 History prednisoLONE ACETATE 1% OPHTH 1 drops RIGHT EYE QID 02/14/22 02/14/22 History [Pred Forte 1%] Allergies Allergy/AdvReac Type Severity Reaction Status Date / Time codeine Allergy Rash/Hives, Verified 02/14/22 12:47 dyspnea Sulfa (Sulfonamide Allergy Rash/Hives, Verified 02/14/22 12:47 Antibiotics) dyspnea venom-honey bee Allergy Dyspnea, Verified 02/14/22 12:47 [bee venom (honey bee)] Rash
== END ==
LOC: 3 N SLEEP 13:52
PROVIDERS: ATTEND Internal Medicine
DX: G47.33 Obstructive sleep apnea (adult) (pediatric) (principal); I10 Essential (primary) hypertension; E78.5 Hyperlipidemia, unspecified; E03.9 Hypothyroidism, unspecified; G40.909 Epilepsy, unspecified, not intractable, without status epilepticus; H02.89 Other specified disorders of eyelid; F17.210 Nicotine dependence, cigarettes, uncomplicated; Z98.890 Other specified postprocedural states; Z90.49 Acquired absence of other specified parts of digestive tract; Z98.62 Peripheral vascular angioplasty status; Z88.5 Allergy status to narcotic agent; Z88.2 Allergy status to sulfonamides; Z91.030 Bee allergy status; Z79.01 Long term (current) use of anticoagulants; Z79.890 Hormone replacement therapy
CPT/HCPCS: 99211